=== PATIENT | male | born 1990 | race African-American/Black ===

== ENCOUNTER 2023-12-22 18:54 | Emergency (ER) | payer OTHER, SELFPAY ==
--- NOTE | ~2023-12-22 | XR_ITS ---
EXAMINATION: XR shoulder RT min 2V DATE: 12/22/2023 19:17 INDICATION: Right shoulder dislocation. TECHNIQUE: 2 views of right shoulder were obtained. COMPARISON: None. FINDINGS: There is anterior dislocation of humeral head with respect to glenoid. No fracture. 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 IMPRESSION: 1. Anterior right shoulder dislocation. Reviewed, dictated and finalized at location E. RPROOFING SUPERVISOR
--- NOTE | ~2023-12-22 | XR_ITS ---
EXAMINATION: XR shoulder RT min 2V DATE: 12/22/2023 23:13 INDICATION: Right shoulder dislocation status post reduction. TECHNIQUE: 2 views of right shoulder on 3 radiographs were obtained. COMPARISON: Right shoulder radiographs at 7:15 PM FINDINGS: Bone alignment is normal. No fracture. Glenohumeral joint is not well profiled. There is mi ld acromioclavicular joint osteoarthritis. IMPRESSION: 1. Normal alignment at glenohumeral joint. Reviewed, dictated and finalized at location E. E PULLER
[2023-12-22 19:09] VITALS: BP 152/102; PULSE 101; RESP 20; TEMP 36.4; O2SAT 98
[2023-12-22 21:59] VITALS: BP 124/59; PULSE 94; RESP 20; O2SAT 99
--- NOTE | 2023-12-22 22:12 | ED.GENADULT ---
HPI - General Adult General Chief complaint: Extremity Injury, Upper Stated complaint: right arm injury Time Seen by Provider: 12/22/23 21:54 Related Data Allergies Allergy/AdvReac Type Severity Reaction Status Date / Time No Known Allergies Allergy Verified 12/22/23 22:04 Review of Systems Review of Systems: All systems are reviewed and are negative unless stated otherwise in the HPI. [facility] Comments Denies any past medical or surgical history, denies any significant family history, and denies any tobacco use, alcohol abuse, or illicit drug use. Exam Narrative: General: Alert, awake, afebrile, in no acute distress. HEENT: PERRL, no rhinorrhea, no post nasal drip, oropharynx clear. Neck: Trachea midline, no JVD, no lymphadenopathy. Cardiovascular: Regular rate and rhythm, no murmurs, rubs or gallops, no peripheral edema. Respiratory: Clear to auscultation bilaterally, no tachypnea, no wheezing, no rhonchi, no rubs, no respiratory distress. Abdomen: Soft, nontender, nondistended, no rebound, no guarding, no peritoneal signs. Musculoskeletal: Decreased range of motion at the right shoulder joint due to pain, arm held in adduction, right humeral head deformity consistent with anterior shoulder dislocation, intact right upper extremity ulnar and radial pulses, intact sensation, intact range of motion at the wrist and elbow joints, intact sensation along all nerve distributions including ulnar, radial, median, and axillary nerve. Skin: No rashes or petechia, no signs of infection. Psychiatric: Alert and oriented, normal behavior and judgment for situation. Neurological: Alert and oriented to person, place, and time. Follows all commands. No focal deficits, speech is clear and fluent. Course Vital Signs Vital signs: Vital Signs Temperature 97.6 F 12/22/23 19:09 Pulse Rate 101 H 12/22/23 19:09 Respiratory Rate 20 12/22/23 19:09 Blood Pressure 152/102 H 12/22/23 19:09 Pulse Oximetry 98 12/22/23 19:09 Temperature 97.6 F 12/22/23 19:09 Pulse Rate 94 12/22/23 21:59 Respiratory Rate 20 12/22/23 21:59 Blood Pressure 124/59 L 12/22/23 21:59 Pulse Oximetry 99 12/22/23 21:59 Procedures Orthopedic Joint Reduction Right shoulder reduction: Additional Comments: Refer to [facility] for procedural note Medical Decision Making [facility] Narrative Medical decision making narrative: The patient was evaluated by myself in the emergency department. History is obtained from patient who is an independent historian and physical exam was performed. External medical records were reviewed at this time. IV was established and pertinent tests were ordered. Patient was administered 4 mg of IV morphine for pain and 4 mg of IV Zofran for nausea. Imaging studies obtained included a right shoulder xray which was independently interpreted by me revealing an anterior shoulder dislocation, which is pending final radiology interpretation. Shoulder Reduction Procedural Note FARES technique was used for a right shoulder reduction. Patient was placed in supine position and right upper extremity was gently oscillated up and down while slowly abducting the right upper extremity at the shoulder joint until reaching at 90?. Right upper extremity was then externally rotated with immediate reduction. Patient felt immediate release. Post reduction shoulder x-ray was obtained at this time and reviewed by me revealing successful right shoulder reduction. X-ray currently pending official radiology read. Patient tolerated the procedure well. Patient noted to be neurovascularly intact before and after reduction. Patient was placed in a right shoulder sling. Differential diagnosis considerations include shoulder dislocation anterior versus posterior, and humeral head/neck fractures. Comorbidities impacting this visit include none. I have evaluated and discussed social determinants of health with the patient that could pot
[2023-12-22] MEDS: MORPHINE SULFATE (*CRX) 4 MG/ML INJ IV PUSH (22:26)
[2023-12-22] MEDS: ONDANSETRON INJ 4 MG/2 ML VIAL IV PUSH (22:26)
== END 2023-12-22 23:56 | disposition home or self-care (01) ==
PROVIDERS: Emergency Provider Emergency Medicine
DX: S43.004A Unspecified dislocation of right shoulder joint, initial encounter (principal); W18.30XA Fall on same level, unspecified, initial encounter
CPT/HCPCS: 23650; 73030; 96374; 96375; 99285; A4565; J2270; J2405